=== PATIENT | male | born 2005 | race Caucasian/White ===

== ENCOUNTER 2023-10-01 14:14 | Emergency (ER) | payer SELFPAY ==
[~2023-10-01] VITALS: Ht 170.1 cm; Wt 54.4 kg
[2023-10-01 15:25] LABS: BASO # 0.1 10*3/uL (0.0-0.1); EOS # 0.1 10*3/uL (0.0-0.4); HEMATOCRIT 41.8 % (42.0-52.0); LYMPH # 1.7 10*3/uL (1.3-4.4); LYMPH % 33.6 % (27.0-41.0); MEAN CELL VOLUME 90.7 fl (80.0-94.0); MEAN CORPUSCULAR HGB CONC 34.2 g/dl (33.0-37.0); MEAN PLATELET VOLUME 11.8 fl (9.6-12.3); MONO # 0.3 10*3/uL (0.1-1.0); MONO % 6.4 % (3.0-9.0); NEUT % 57.8 % (47.0-73.0); PLATELET COUNT AUTOMATED 174 10*3/uL (130-400); RED BLOOD COUNT 4.61 10*6/uL (4.50-5.90); RED CELL DISTRI WIDTH 13.4 % (0-14.5); WHITE BLOOD COUNT 5.1 10*3/uL (4.8-10.8)
[2023-10-01] MEDS ORDERED: LORazepam 1 MG TAB PO ONE (15:40)
[2023-10-01 15:41] LABS: BUN 10 mg/dl (9-23); CHLORIDE 106 mmol/L (98-107); POTASSIUM 3.9 mmol/L (3.4-5.1)
== END 2023-10-01 16:40 ==
LOC: ED 14:14
PROVIDERS: Nurse Practitioner Family
DX: F41.9 Anxiety disorder, unspecified (principal); R07.89 Other chest pain; M25.511 Pain in right shoulder

== ENCOUNTER 2024-02-21 12:07 | Emergency (ER) | payer OTHER ==
[~2024-02-21] VITALS: Ht 175.2 cm; Wt 54.4 kg
[2024-02-21] MEDS ORDERED: diphenhydrAMINE hydrochloride 50 MG/ML VIAL IV ONE (12:40)
[2024-02-21] MEDS ORDERED: SODIUM CHLORIDE 0.9% 1,000 ML IV ONE ×2 (12:40→13:40)
[2024-02-21] MEDS ORDERED: Metoclopramide Hydrochloride 10 MG/2 ML VIAL IV ONE (12:40)
[2024-02-21 13:04] LABS: HEMATOCRIT 49.4 % (42.0-52.0); MEAN CELL VOLUME 86.2 fl (80.0-94.0); MEAN CORPUSCULAR HGB 30.2 pg (27.0-31.0); MEAN PLATELET VOLUME 11.4 fl (9.6-12.3); PLATELET COUNT AUTOMATED 234 10*3/uL (130-400); RED BLOOD COUNT 5.73 10*6/uL (4.50-5.90); RED CELL DISTRI WIDTH 12.4 % (0-14.5)
[2024-02-21 13:08] LABS: MANUAL DIFF REFLEX YES
[2024-02-21 13:22] LABS: TOTAL CELLS COUNTED 100 #CELLS
[2024-02-21 13:23] LABS: PLATELET SUFFICIENCY NORMAL (NORMAL); POLYCHROMASIA SLIGHT
[2024-02-21 13:25] LABS: ALKALINE PHOSPHATASE 100 U/L (46-116); BUN 25 mg/dl (9-23); CHLORIDE 100 mmol/L (98-107); LIPASE 24 U/L (12-53); SGPT/ALT 24 U/L (5-49); TOTAL PROTEIN 8.9 gm/dL (6.0-8.0)
[2024-02-21] MEDS ORDERED: Ondansetron4 MG PO (15:48)
[2024-02-21] MEDS ORDERED: Ondansetron Hydrochloride 4 MG/2 ML VIAL IV ONE (16:05)
[2024-02-21] MEDS ORDERED: Ondansetron Hydrochloride 4 MG TAB SL ONE (16:10)
== END 2024-02-21 16:01 | disposition home or self-care (01) ==
LOC: ED 12:07
PROVIDERS: Nurse Practitioner Family
DX: A08.4 Viral intestinal infection, unspecified (principal); Z20.822 Contact with and (suspected) exposure to COVID-19; E86.0 Dehydration; R11.2 Nausea with vomiting, unspecified; R10.84 Generalized abdominal pain; R51.9 Headache, unspecified; F41.9 Anxiety disorder, unspecified